=== PATIENT | female | born 1990 | race African-American/Black ===

== ENCOUNTER 2017-06-06 14:02 | Emergency (ER) | payer MEDICARE, MEDICAID ==
[~2017-06-06] VITALS: Ht 167.6 cm; Wt 118.5 kg
[~2017-06-06 14:02] MED LIST: AMLO5TAB88 PO; BENA20TA3 PO
[2017-06-06] MEDS ORDERED: CLONIDINE 0.1MG TABLET PO ONE (19:00)
[2017-06-06 19:13] LABS: BASOPHILS % 0.5 % (0.0-2.0); EOSINOPHILS % 1.2 % (0.0-5.0); HEMATOCRIT. 41.7 % (36.0-48.0); HEMOGLOBIN. 13.8 g/dL (12.0-16.0); LYMPHOCYTES % 12.8 % (20.0-50.0); MEAN CORPUSCULAR VOLUME 87.9 fL (81.0-99.0); MEAN PLATELET VOLUME 7.5 fl (7.4-10.4); MONOCYTES % 5.8 % (2.0-8.0); NEUTROPHILS % 79.7 % (40.0-76.0); PLATELET 330 x1000/uL (130-400); RED BLOOD CELL COUNT 4.75 mill/uL (4.2-5.4); RED CELL DISTRIBUTION WIDTH 12.7 % (11.6-14.6)
[2017-06-06 19:21] LABS: CHLORIDE 101 mEq/L (98-107); INR 1.1; PROTHROMBIN TIME 11.4 sec (9.4-11.6)
[2017-06-06 19:25] LABS: CARBON DIOXIDE 28 mEq/L (21-32)
[2017-06-06] MEDS ORDERED: IOHEXOL-300 100 ML BOTTLE ONE (22:50)
[2017-06-06] MEDS: CEFTRIAXONE 1 G PREMIX 50 ML IV ONE (23:45)
[2017-06-07] MEDS: CEFTRIAXONE 1 G PREMIX 50 ML IV ONE (00:17)
[2017-06-07 01:15] VITALS: BP 155/99
== END 2017-06-07 02:00 | disposition home or self-care (01) ==
LOC: ER 15:18
DX: K12.2 Cellulitis and abscess of mouth (principal); I10 Essential (primary) hypertension; J45.909 Unspecified asthma, uncomplicated
CPT/HCPCS: 36415; 70487; 71045; 80053; 81025; 85025; 85610; 96365; 99285; J0696; Q9967

== ENCOUNTER 2019-07-20 15:15 | Inpatient (IN) | payer MEDICARE, MEDICAID ==
[~2019-07-20] VITALS: Ht 167.6 cm; Wt 113.9 kg
[~2019-07-20 15:15] MED LIST changes: +BENA20TA10 PO; -BENA20TA3 PO
[2019-07-20] MEDS ORDERED: IPRATROPIUM BROMIDE (0.02%) 0.5MG/2.5ML NEB HHN STA (16:25)
[2019-07-20] MEDS ORDERED: METHYLPREDNISOLONE SOD SUCC 125 MG/2 ML VIAL IV STA (16:25)
[2019-07-20] MEDS ORDERED: ALBUTEROL (0.083%) 2.5MG/3ML NEB HHN STA (16:25)
[2019-07-20 17:37] LABS: BASOPHILS % 1.2 % (0.0-2.0); EOSINOPHILS % 14.9 % (0.0-5.0); HEMATOCRIT. 38.5 % (36.0-48.0); HEMOGLOBIN. 12.6 g/dL (12.0-16.0); LYMPHOCYTES % 8.5 % (20.0-50.0); MEAN CORPUSCULAR HEMOGLOBIN 28.6 pg (28.0-32.0); MEAN CORPUSCULAR VOLUME 87.6 fL (81.0-99.0); MEAN PLATELET VOLUME 8.2 fl (7.4-10.4); MONOCYTES % 7.8 % (2.0-8.0); NEUTROPHILS % 67.6 % (40.0-76.0); PLATELET 197 x1000/uL (130-400); RED BLOOD CELL COUNT 4.39 mill/uL (4.2-5.4); RED CELL DISTRIBUTION WIDTH 15.4 % (11.6-14.6)
[2019-07-20 17:38] LABS: CHLORIDE 107 mEq/L (98-107)
[2019-07-20 17:40] LABS: HCG SCREEN NEGATIVE
[2019-07-20 17:54] LABS: D-DIMER 0.47 mg/L FEU (<0.50); INR 1.1; PARTIAL THROMBOPLASTIN TIME 26.5 sec (23.4-31.0); PROTHROMBIN TIME 12.4 sec (9.6-11.0)
[2019-07-20] MEDS ORDERED: ASPIRIN 81MG TABLET PO ONE (18:15)
[2019-07-20 20:56] LABS: CLARITY URINE CLOUDY (CLEAR); COLOR URINE YELLOW (YELLOW); KETONES URINE 1+ (NEGATIVE); LEUKOCYTE ESTERASE URINE 1+ (NEGATIVE); NITRITE URINE NEGATIVE (NEGATIVE); OCCULT BLOOD URINE NEGATIVE (NEGATIVE); PH URINE 5.5 (4.5-8.0); PROTEIN URINE 2+ (NEGATIVE); SPECIFIC GRAVITY URINE 1.016 (1.005-1.030)
[2019-07-21 01:34] VITALS: BP 124/80
[2019-07-21 04:00] VITALS: BP 124/86
[2019-07-21] MEDS ORDERED: MAGNESIUM/ALUMINUM HYDROXIDE/SIMETHICONE 30ML UDC PO PRN (07:30)
[2019-07-21] MEDS ORDERED: DOCUSATE SODIUM 100MG CAPSULE PO PRN (07:30)
[2019-07-21] MEDS ORDERED: ACETAMINOPHEN 650MG/20.3ML UDC GT PRN (07:30)
[2019-07-21] MEDS ORDERED: ACETAMINOPHEN 325MG TABLET PO PRN (07:30)
[2019-07-21] MEDS ORDERED: CLONIDINE 0.1MG TABLET PO PRN (07:30)
[2019-07-21] MEDS ORDERED: ACETAMINOPHEN 650MG SUPP PR PRN (07:30)
[2019-07-21] MEDS ORDERED: GUAIFENESIN 200MG/10ML SUGAR FREE UDC PO PRN (07:30)
[2019-07-21] MEDS ORDERED: IPRATROPIUM/ALBUTEROL 0.5-3(2.5)MG/3ML NEB HHN PRN (07:30)
[2019-07-21] MEDS ORDERED: DIPHENHYDRAMINE 50MG/ML VIAL IV PRN (07:30)
[2019-07-21] MEDS ORDERED: ONDANSETRON HCL 4MG/2ML INJ IV PRN (07:30)
[2019-07-21] MEDS ORDERED: NA PHOS,M-B/NA PHOS,DI-BA ENEMA 118ML PR PRN (07:30)
[2019-07-21 08:00] VITALS: BP 141/84
[2019-07-21] MEDS ORDERED: ENOXAPARIN 40MG/0.4ML SYR SUBCUT SCH (09:00)
[2019-07-21 09:13] LABS: HEMATOCRIT. 35.6 % (36.0-48.0); HEMOGLOBIN. 11.4 g/dL (12.0-16.0); MEAN CORPUSCULAR VOLUME 87.1 fL (81.0-99.0); MEAN PLATELET VOLUME 8.2 fl (7.4-10.4); PLATELET 207 x1000/uL (130-400); RED BLOOD CELL COUNT 4.08 mill/uL (4.2-5.4); RED CELL DISTRIBUTION WIDTH 15.6 % (11.6-14.6)
[2019-07-21 09:19] LABS: CHLORIDE 104 mEq/L (98-107)
[2019-07-21 09:25] LABS: PHOSPHORUS 4.1 mg/dL (2.5-4.9)
[2019-07-21 09:27] LABS: LDL CHOLESTEROL 73 mg/dL (5-100)
[2019-07-21 09:28] LABS: HDL CHOLESTEROL 29 mg/dL (40-59)
[2019-07-21 09:40] LABS: T4 FREE 1.03 ng/dL (0.76-1.46)
[2019-07-21] MEDS: IPRATROPIUM/ALBUTEROL 0.5-3(2.5)MG/3ML NEB NEB SCH ×3 (10:03→20:10)
[2019-07-21] MEDS ORDERED: POTASSIUM CHLORIDE 20MEQ/PACKET PO NR (11:00)
[2019-07-21 12:00] VITALS: BP 142/93
[2019-07-21] MEDS: FUROSEMIDE 40MG/4ML VIAL IVP SCH (13:22)
[2019-07-21] MEDS: SODIUM CHLORIDE 0.9% INJ 3ML FLUSH IVF SCH ×2 (13:34→21:21)
[2019-07-21 16:00] VITALS: BP 137/87
[2019-07-21 16:26] LABS: CLARITY URINE CLEAR (CLEAR); COLOR URINE YELLOW (YELLOW); KETONES URINE NEGATIVE (NEGATIVE); LEUKOCYTE ESTERASE URINE TRACE (NEGATIVE); NITRITE URINE NEGATIVE (NEGATIVE); OCCULT BLOOD URINE NEGATIVE (NEGATIVE); PH URINE 6.5 (4.5-8.0); PROTEIN URINE NEGATIVE (NEGATIVE); SPECIFIC GRAVITY URINE 1.009 (1.005-1.030)
[2019-07-21 17:15] LABS: OPIATES URINE SCREEN NEGATIVE (NEGATIVE); PHENCYCLIDINE URINE SCREEN NEGATIVE (NEGATIVE)
[2019-07-21 17:16] LABS: *AMPHETAMINES SCREEN URINE NEGATIVE (NEGATIVE); *BARBITURATES SCREEN URINE NEGATIVE (NEGATIVE); *BENZODIAZEPINES SCREEN URINE NEGATIVE (NEGATIVE); *COCAINE SCREEN URINE NEGATIVE (NEGATIVE); CANNABINOID URINE SCREEN NEGATIVE (NEGATIVE)
[2019-07-21 17:17] LABS: METHADONE URINE SCREEN NEGATIVE (NEGATIVE)
[2019-07-21 18:32] LABS: CREATINE KINASE 215 IU/L (26-192)
[2019-07-21 18:33] LABS: CREATINE KINASE MB FRACTION 2.9 ng/mL (0.5-3.6)
[2019-07-21 20:00] VITALS: BP 133/82
[2019-07-21] MEDS: ENOXAPARIN 30MG/0.3ML SYR SUBCUT SCH (21:21)
[2019-07-21 23:32] LABS: PLATELET ESTIMATE NORMAL
[2019-07-22] VITALS: BP 128/60
[2019-07-22 00:58] LABS: CREATINE KINASE MB FRACTION 2.6 ng/mL (0.5-3.6)
[2019-07-22 01:02] LABS: CREATINE KINASE 184 IU/L (26-192)
[2019-07-22] MEDS: IPRATROPIUM/ALBUTEROL 0.5-3(2.5)MG/3ML NEB NEB SCH ×3 (02:03→13:02)
[2019-07-22 04:00] VITALS: BP 125/87
[2019-07-22 06:06] LABS: BASOPHILS % 0.4 % (0.0-2.0); EOSINOPHILS % 0.9 % (0.0-5.0); HEMATOCRIT. 33.8 % (36.0-48.0); HEMOGLOBIN. 10.9 g/dL (12.0-16.0); LYMPHOCYTES % 15.4 % (20.0-50.0); MEAN CORPUSCULAR HEMOGLOBIN 28.2 pg (28.0-32.0); MEAN CORPUSCULAR VOLUME 87.2 fL (81.0-99.0); MEAN PLATELET VOLUME 8.2 fl (7.4-10.4); MONOCYTES % 6.3 % (2.0-8.0); PLATELET 207 x1000/uL (130-400); RED BLOOD CELL COUNT 3.88 mill/uL (4.2-5.4); RED CELL DISTRIBUTION WIDTH 15.2 % (11.6-14.6)
[2019-07-22 06:37] LABS: CHLORIDE 103 mEq/L (98-107)
[2019-07-22 06:53] LABS: LDL CHOLESTEROL 74 mg/dL (5-100)
[2019-07-22 06:56] LABS: HDL CHOLESTEROL 28 mg/dL (40-59)
[2019-07-22] MEDS: SODIUM CHLORIDE 0.9% INJ 3ML FLUSH IVF SCH (07:22)
[2019-07-22 08:00] VITALS: BP 149/83
[2019-07-22] MEDS: ENOXAPARIN 30MG/0.3ML SYR SUBCUT SCH (08:33)
[2019-07-22] MEDS: FUROSEMIDE 40MG/4ML VIAL IVP SCH (08:33)
[2019-07-22] MEDS ORDERED: POTASSIUM CHLORIDE 20MEQ/PACKET PO NR (11:15)
[2019-07-22] MEDS ORDERED: FURO-151 MT (11:16)
[2019-07-22] MEDS ORDERED: COR3 MT (11:19)
[2019-07-22 11:39] VITALS: BP 149/83
[2019-07-22 12:00] VITALS: BP 143/78
[2019-07-22] MEDS ORDERED: LOSARTAN POTASSIUM 50 MG TABLET PO SCH (12:00)
[2019-07-22] MEDS ORDERED: CARVEDILOL 3.125 MG TABLET PO SCH (21:00)
== END 2019-07-22 13:12 | disposition home health service (06) | DRG 291 ==
LOC: ER 15:15 → 6WST 18:56 → EDBEDREQ 19:03 → ENRESERV 23:01
PROVIDERS: ADMIT Family Medicine; ATTEND Family Medicine
DX: I11.0 Hypertensive heart disease with heart failure (principal); I50.31 Acute diastolic (congestive) heart failure; Z68.41 Body mass index [BMI] 40.0-44.9, adult; E11.9 Type 2 diabetes mellitus without complications; E66.9 Obesity, unspecified; E83.42 Hypomagnesemia; J45.909 Unspecified asthma, uncomplicated; E87.6 Hypokalemia; I08.1 Rheumatic disorders of both mitral and tricuspid valves; I27.20 Pulmonary hypertension, unspecified; Z79.899 Other long term (current) drug therapy
CPT/HCPCS: 36415; 71045; 80053; 80061; 80305; 81003; 82550; 82553; 82962; 83036; 83735; 83880; 84100; 84439; 84443; 84484; 84703; 85025; 85379; 93005; 93306; 93970; 94640; 94644; 96374; 99285; J1650; J1940; J2930